=== PATIENT | female | born 2005 | race Two or more races ===

== ENCOUNTER 2023-05-15 06:12 | Emergency (ER) | payer OTHER ==
[~2023-05-15] VITALS: Ht 154.9 cm; Wt 56.7 kg
[2023-05-15 08:17] LABS: CALCIUM 9.8 mg/dL (8.5-10.1); CREATININE SERUM 0.69 mg/dL (0.55-1.02); GFR 109.6; POTASSIUM 4.14 mEq/L (3.5-5.1)
[2023-05-15 08:54] LABS: HEMATOCRIT 43.3 % (36.0-45.00); HEMOGLOBIN 14.7 g/dL (12.0-15.00); MEAN CELL VOLUME 79.5 fL (80.00-100.00); PLATELET COUNT 301 K/uL (150-450); RED BLOOD COUNT 5.45 M/uL (4.00-6.00); RED CELL DISTRIBUTION WIDTH 13.5 % (11.5-14.5)
== END 2023-05-15 15:25 | disposition home or self-care (01) ==
LOC: EMR PED 06:14 → ER 06:14 → EMR PED 06:28
PROVIDERS: Pediatrics
DX: G44.89 Other headache syndrome (principal)